=== PATIENT | female | born 1950 | race Caucasian/White ===

== ENCOUNTER → 2024-08-11 | Outpatient (CLI) | payer MEDICARE ==
[~2024-08-11] MED LIST: ASPI81TA86 PO; ATOR1TAB19 PO; CLOP75TA99 PO; LISI2.5T49 PO; METO-346 PO
== END ==
LOC: M PLAIMG 10:14
PROVIDERS: ATTEND Nurse Practitioner Family
DX: M25.531 Pain in right wrist (principal); M25.532 Pain in left wrist; M25.511 Pain in right shoulder